=== PATIENT | male | born 1985 | race Caucasian/White ===

== ENCOUNTER 2019-01-16 22:50 | Emergency (ER) | payer SELFPAY ==
[~2019-01-16] VITALS: Ht 167.6 cm; Wt 81.6 kg
[2019-01-16 23:03] VITALS: BP 128/90
--- NOTE | 2019-01-16 23:03 | NUR ---
TO BED # 06 AMBULATORY, REPORT GIVEN TO KATTY CR
[2019-01-16] MEDS ORDERED: NACL 0.9% 1,000 ML IV ONE (23:25)
[2019-01-16] MEDS ORDERED: ONDANSETRON 4 MG/2 ML VIAL IVP ONE (23:25)
--- NOTE | 2019-01-16 23:25 | NUR ---
PATIENT PRESENTS TO ED WITH NXIETY ATTACK FOR 2 DAYS . DENIES N/V/D; SKIN IS PINK/WARM/DRY; AAOX4 WITH EVEN AND STEADY GAIT; LUNGS CLEAR BL; HR EVEN AND REGULAR; PT DENIES ANY FEVER, CP, SOB, OR COUGH AT THIS TIME; PATIENT STATES PAIN OF 0/10 AT THIS TIME; VSS; PATIENT POSITIONED FOR COMFORT; HOB ELEVATED; BEDRAILS UP X2; BED DOWN. ER MD MADE AWARE OF PT STATUS.
[2019-01-16 23:40] LABS: BASOPHILS # (AUTO) 0.1 K/uL (0.00-0.22); BASOPHILS % (AUTO) 1.4 % (0.0-2.0); EOSINOPHILS # (AUTO) 0.1 K/uL (0-0.4); EOSINOPHILS % (AUTO) 1.5 % (0.0-4.0); HEMATOCRIT 43.1 % (36-52); HEMOGLOBIN 14.7 g/dL (12.0-18.0); LYMPHOCYTES % (AUTO) 40.2 % (20.5-51.1); MEAN CORPUSCULAR HEMOGLOBIN 31 pg (27-31); MEAN CORPUSCULAR HGB CONC 34 g/dL (33-37); MEAN CORPUSCULAR VOLUME 90.5 fL (80-94); MONOCYTES # (AUTO) 0.6 K/uL (0.8-1.0); MONOCYTES % (AUTO) 11.8 % (1.7-9.3); NEUTROPHILS # (AUTO) 2.2 K/uL (1.8-7.7); NEUTROPHILS % (AUTO) 45.1 % (42.2-75.2); PLATELET COUNT (AUTO) 261 K/uL (140-450); RED BLOOD CELL COUNT(AUTO) 4.77 MIL/uL (4.20-6.10); WHITE BLOOD COUNT (AUTO) 4.9 K/uL (4.8-10.8)
[2019-01-16 23:48] LABS: BARBITURATE, URINE NEG. ng/ml (NEG <=200); BENZODIAZEPINE, URINE NEG. ng/mL (NEG <=200); CANNABINOID, URINE NEG. ng/mL (NEG <=50); COCAINE, URINE NEG. ng/mL (NEG <=300); OPIATE, URINE NEG. ng/mL (NEG <=2000); PHENCYCLIDINE SCREEN,URINE NEG. ng/mL (NEG <=25)
[2019-01-16 23:49] LABS: CHLORIDE 106 mmol/L (98-107); CREATININE 0.8 mg/dL (0.7-1.3); GFR ARICAN-AMERICAN 144 mL/min (>90); GLUCOSE 97 mg/dL (74-106); SODIUM SERUM 143 mmol/L (136-145); UREA NITROGEN, BLOOD 14 mg/dL (7-18)
[2019-01-16 23:57] LABS: ALBUMIN 3.7 g/dL (3.4-5.0); ASPARTATE AMINOTRANSFERASE 53 U/L (15-37); TOTAL BILIRUBIN 0.4 mg/dL (0.0-1.0)
[2019-01-16 23:59] LABS: ACETAMINOPHEN < 0.5 ug/ml (10-30); SALICYLATE < 2.8 mg/dL (2.8-20.0)
[2019-01-17 00:38] VITALS: BP 117/95
--- NOTE | 2019-01-17 00:38 | NUR ---
Patient discharged with v/s stable. Written and verbal after care instructions given and explained. Patient alert, oriented and verbalized understanding of instructions. Ambulatory with steady gait. All questions addressed prior to discharge. ID band removed. Patient advised to follow up with PMD. Rx of ATIVAN 0.5MG given. Patient educated on indication of medication including possible reaction and side effects. Opportunity to ask questions provided and answered.
== END 2019-01-17 00:38 | disposition home or self-care (01) ==
LOC: MED 22:50
DX: F10.129 Alcohol abuse with intoxication, unspecified (principal); F41.9 Anxiety disorder, unspecified; F32.9 Major depressive disorder, single episode, unspecified; Y90.5 Blood alcohol level of 100-119 mg/100 ml
CPT/HCPCS: 36415; 80053; 80305; 81002; 85025; 96361; 96374; 99283; G0480; G0482; J2405; J7030

== ENCOUNTER 2019-03-22 19:29 | Emergency (ER) | payer SELFPAY ==
[~2019-03-22] VITALS: Ht 167.6 cm; Wt 90.7 kg
[2019-03-22 19:34] VITALS: BP 144/88
--- NOTE | 2019-03-22 19:49 | NUR ---
PT AMBULATED TO ER BED 2
--- NOTE | 2019-03-22 19:50 | NUR ---
PT BIB MOTHER AND FRIEND C/O CHEST PRESSURE, N/V. PT STATES HE HAS BEEN HAVING A STRESSFUL WEEK AT WORK START DRINKING 2 BOTTLES OF WINE SINCE MONDAY LAST DRINK WAS TODAY; N/V STARTED 2 DAYS AGO ALONG W/ CHEST PRESSURE. PT STATES 8/10 NON-RADIATING CHEST PRESSURE. PT IS CRYING OFF AND ON WHEN TALKING ABOUT BEING OVERWHELMED AT WORK. PT STATES HX CHEST PRESSURE W/ FEELING ANXIOUS. PT IS ACTING APPROPRIATLY, SPEAKING IN CLEAR AND COMPLETE SENTENCES. BREATHING EQUAL AND UNLABORED. SINUS TACH AT 120s. SKIN WARM, AND DRY. 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 ERMD AWARE OF PT STATUS. WILL CONTINUE TO MONITOR. PMH: DENIES
[2019-03-22] MEDS ORDERED: NACL 0.9% 1,000 ML IV ONE (20:10)
[2019-03-22] MEDS ORDERED: ASPIRIN 325 MG TAB PO ONE (20:10)
--- NOTE | 2019-03-22 20:25 | NUR ---
X-RAY AT BEDSIDE.
[2019-03-22] MEDS ORDERED: THIAMINE 200 MG/2 ML VIAL IM ONE (20:40)
[2019-03-22] MEDS ORDERED: LORazepam 1 MG TAB PO ONE (20:40)
[2019-03-22] MEDS ORDERED: FOLIC ACID 1 MG TAB PO ONE (20:40)
[2019-03-22] MEDS ORDERED: PANTOPRAZOLE 40 MG TABEC PO ONE (20:40)
[2019-03-22 20:49] LABS: BASOPHILS # (AUTO) 0.1 K/uL (0.00-0.22); BASOPHILS % (AUTO) 1.3 % (0.0-2.0); EOSINOPHILS % (AUTO) 0.3 % (0.0-4.0); HEMATOCRIT 41.4 % (36-52); HEMOGLOBIN 14.1 g/dL (12.0-18.0); LYMPHOCYTES # (AUTO) 1.4 K/uL (2.0-11.5); LYMPHOCYTES % (AUTO) 31.6 % (20.5-51.1); MEAN CORPUSCULAR HEMOGLOBIN 31 pg (27-31); MEAN CORPUSCULAR HGB CONC 34 g/dL (33-37); MEAN CORPUSCULAR VOLUME 90.9 fL (80-94); MONOCYTES # (AUTO) 0.6 K/uL (0.8-1.0); MONOCYTES % (AUTO) 12.6 % (1.7-9.3); NEUTROPHILS # (AUTO) 2.4 K/uL (1.8-7.7); NEUTROPHILS % (AUTO) 54.2 % (42.2-75.2); PLATELET COUNT (AUTO) 249 K/uL (140-450); RED BLOOD CELL COUNT(AUTO) 4.56 MIL/uL (4.20-6.10); RED CELL DISTRIBUTION WIDTH 15.6 % (11.6-13.7); WHITE BLOOD COUNT (AUTO) 4.4 K/uL (4.8-10.8)
--- NOTE | 2019-03-22 20:58 | NUR ---
PT ASKING HOW MUCH LONGER, STATES HE IS READY TO GO HOME. PT EDUCATED ON MEDICATION ADM. PT POSITIONED FOR COMFORT. PT ENCOURAGED TO PROVIDE URINE SAMPLE.
[2019-03-22 21:03] LABS: ANION GAP 16.7 (8-16); CARBON DIOXIDE 24.9 mmol/L (21-32); CREATININE 0.6 mg/dL (0.7-1.3); POTASSIUM 3.6 mmol/L (3.5-5.1)
[2019-03-22 21:17] LABS: ALBUMIN 3.8 g/dL (3.4-5.0); TOTAL BILIRUBIN 0.3 mg/dL (0.0-1.0)
--- NOTE | 2019-03-22 21:20 | NUR ---
pt requests for iv to be removed, pt states he wants to leave, dr ventura made aware and states pt will d/c home, pt does not wish to wait for d/c instructions. pt ambulatory when leaving , vss, pt awake and alert, w/ friend.
[2019-03-22 21:28] VITALS: BP 138/81
--- NOTE | 2019-03-26 07:27 | NUR ---
Late entry. Confirmed with RN that 1000ml 0.9 NS IV completed at 2119
== END 2019-03-22 21:20 | disposition home or self-care (01) ==
LOC: MED 19:29
DX: F10.129 Alcohol abuse with intoxication, unspecified (principal); F41.9 Anxiety disorder, unspecified; F32.9 Major depressive disorder, single episode, unspecified; F43.10 Post-traumatic stress disorder, unspecified
CPT/HCPCS: 36415; 71045; 80053; 84484; 85025; 93005; 96360; 96372; 99284; G0482; J3411; J7030; Q0092

== ENCOUNTER 2019-08-17 21:22 | Emergency (ER) | payer MEDICAID ==
[~2019-08-17] VITALS: Ht 167.6 cm; Wt 96.2 kg
[2019-08-17 21:41] VITALS: BP 171/114
--- NOTE | 2019-08-17 21:41 | NUR ---
PT AMBULATED TO ER BED 11
[2019-08-17] MEDS ORDERED: ONDANSETRON 4 MG/2 ML VIAL IVP ONE (22:05)
[2019-08-17] MEDS ORDERED: MULTIVITAMIN-12 10 ML, THIAMINE 100 MG, FOLIC ACID 1 MG, MAGNESIUM SULFATE 50% 2,000 MG... IV SCH ×5 (22:05)
--- NOTE | 2019-08-17 22:10 | NUR ---
33 Y/O MALE PRESENTS TO ED, C/O LEFT FACIAL TINGLING SENSATION. PT STATES DRINKING "A COUPLE OF BOTTLES" OF WINE EVERY DAY FOR THE PAST WEEK. STATES HAVING HX OF ALCOHOLISM AND DETOXING. DENIES ANY HX OF SEIZURE. NO ARM DRIFT/WEAKNESS. PT ABLE TO AMBULATE WITH SLOW STEADY GAIT. NO SLURRED SPEECH NOTED. PT VSS. DENIES ANY CHEST PAIN/SOB. ERMD AWARE. WILL CONTINUE TO MONITOR.
[2019-08-17] MEDS ORDERED: MULTIVITAMIN-12 10 ML VIAL IV ONE (22:14)
[2019-08-17] MEDS ORDERED: THIAMINE 200 MG/2 ML VIAL ONE (22:14)
[2019-08-17] MEDS ORDERED: FOLIC ACID 5 MG/ML SYR ONE (22:14)
[2019-08-17 22:36] LABS: BASOPHILS # (AUTO) 0.1 K/uL (0.00-0.22); BASOPHILS % (AUTO) 1.2 % (0.0-2.0); EOSINOPHILS % (AUTO) 0.1 % (0.0-4.0); HEMATOCRIT 44.5 % (36-52); HEMOGLOBIN 15.3 g/dL (12.0-18.0); LYMPHOCYTES # (AUTO) 1.4 K/uL (2.0-11.5); LYMPHOCYTES % (AUTO) 25.8 % (20.5-51.1); MEAN CORPUSCULAR HEMOGLOBIN 32 pg (27-31); MEAN CORPUSCULAR HGB CONC 35 g/dL (33-37); MEAN CORPUSCULAR VOLUME 91.7 fL (80-94); MONOCYTES # (AUTO) 0.7 K/uL (0.8-1.0); MONOCYTES % (AUTO) 12.7 % (1.7-9.3); NEUTROPHILS # (AUTO) 3.3 K/uL (1.8-7.7); NEUTROPHILS % (AUTO) 60.2 % (42.2-75.2); PLATELET COUNT (AUTO) 297 K/uL (140-450); RED BLOOD CELL COUNT(AUTO) 4.86 MIL/uL (4.20-6.10); RED CELL DISTRIBUTION WIDTH 14.1 % (11.6-13.7); WHITE BLOOD COUNT (AUTO) 5.5 K/uL (4.8-10.8)
[2019-08-17 22:48] LABS: ANION GAP 16.9 (8-16); CARBON DIOXIDE 23.9 mmol/L (21-32); CHLORIDE 101 mmol/L (98-107); CREATININE 0.7 mg/dL (0.7-1.3); GFR ARICAN-AMERICAN 168 mL/min (>90); GLUCOSE 100 mg/dL (74-106); POTASSIUM 3.8 mmol/L (3.5-5.1); SODIUM SERUM 138 mmol/L (136-145); UREA NITROGEN, BLOOD 13 mg/dL (7-18)
[2019-08-17 22:54] LABS: BARBITURATE, URINE NEG. ng/ml (NEG <=200); BENZODIAZEPINE, URINE NEG. ng/mL (NEG <=200); CANNABINOID, URINE NEG. ng/mL (NEG <=50); COCAINE, URINE NEG. ng/mL (NEG <=300); OPIATE, URINE NEG. ng/mL (NEG <=2000); PHENCYCLIDINE SCREEN,URINE NEG. ng/mL (NEG <=25)
[2019-08-17 22:55] LABS: ALBUMIN 3.9 g/dL (3.4-5.0); ASPARTATE AMINOTRANSFERASE 107 U/L (15-37); TOTAL BILIRUBIN 0.6 mg/dL (0.0-1.0)
[2019-08-17 22:56] LABS: ACETAMINOPHEN < 0.5 ug/ml (10-30); SALICYLATE < 2.8 mg/dL (2.8-20.0)
--- NOTE | 2019-08-17 23:03 | NUR ---
Called [facility] pharmacist regarding Magnesium Sulfate 2gm for banana bag; there is no vial for Magnesium Sulfate 2 gm for banana bag. [facility] stated that is ok to use Mag Jordan 2gm for banana bag. Will let Dr Campbell know about Magnesium Sulfate 2gm is not available for banana bag, and will use Mag Jordan 2gm for banana bag as stated by [facility] Pharmacist
[2019-08-17] MEDS ORDERED: MAG SULF 2000 MG/WATER PREMIX 50 ML IV ONE ×2 (23:16→23:20)
[2019-08-18] MEDS ORDERED: KETOROLAC 30 MG/ML VIAL IVP ONE (00:35)
[2019-08-18] MEDS ORDERED: LORazepam 2 MG/ML VIAL IVP ONE (01:25)
[2019-08-18 02:02] VITALS: BP 159/98
--- NOTE | 2019-08-18 02:03 | NUR ---
Patient discharged with v/s stable. Written and verbal after care instructions given and explained. Patient alert, oriented and verbalized understanding of instructions. Ambulatory with steady gait. All questions addressed prior to discharge. ID band removed. Patient advised to follow up with PMD. Rx of MOTRIN, ZOFRAN, AND XANAX given. Patient educated on indication of medication including possible reaction and side effects. Opportunity to ask questions provided and answered.
== END 2019-08-18 02:03 | disposition home or self-care (01) ==
LOC: MED 21:22
DX: I85.00 Esophageal varices without bleeding (principal); F10.129 Alcohol abuse with intoxication, unspecified; Y90.5 Blood alcohol level of 100-119 mg/100 ml
CPT/HCPCS: 36415; 80053; 80305; 85025; 93005; 96365; 96368; 96375; 99284; A9153; G0480; G0482; J1885; J2060; J2405; J3411; J3475; J3490

== ENCOUNTER 2020-08-25 18:36 | Emergency (ER) | payer SELFPAY ==
[~2020-08-25] VITALS: Ht 177.8 cm; Wt 117.9 kg
[2020-08-25 18:44] VITALS: BP 138/81
--- NOTE | 2020-08-25 19:30 | NUR ---
PT UP FOR DISCHARGE AND LEFT WITHOUT DISCHARGE TEACHINGS AND RX. NO FURTHER NURSING CARE PROVIDED FOR THIS PATIENT.
== END 2020-08-25 19:30 | disposition home or self-care (01) ==
LOC: MED 18:36
DX: U07.1 COVID-19 (principal); B34.9 Viral infection, unspecified; R03.0 Elevated blood-pressure reading, without diagnosis of hypertension; F41.9 Anxiety disorder, unspecified; F17.210 Nicotine dependence, cigarettes, uncomplicated
CPT/HCPCS: 99281; 99283